=== PATIENT | female | born 1995 | race Caucasian/White ===

== ENCOUNTER 2018-03-08 05:15 | Emergency (ER) | payer BC ==
[~2018-03-08] VITALS: Ht 154.9 cm; Wt 50.0 kg
[2018-03-08 05:16] VITALS: TEMP 36.7; Ht 154.9 cm; Wt 50.0 kg
[2018-03-08] MEDS ORDERED: DEXAMETHASONE SOD INJ 4 MG/ML VIAL IV STA (05:34)
--- NOTE | 2018-03-08 05:34 | EMERGENCY ROOM VISIT NOTE ---
History Report prepared by Dolores: Vladimir Benson Under the Supervision of: Dr. Debi Galloway D.O. First contact with patient: 05:23 Chief Complaint: RESPIRATORY PROBLEMS Stated Complaint: ASTHMA ATTACK-TROUBLE BREATHING History of Present Illness The patient is a 22 year old female who presents to the Emergency Room with complaints of constant SOB beginning this morning. The patient states that she first developed a slight cough two days ago that worsened mildly yesterday. She notes that her cough has not been productive. She reports that she suddenly woke up this morning and felt like she could not breathe. The patient states that it feels like there it "a lot of phlegm that won't break." She also complains of chest tightness and a sore throat at the bottom of her throat. She denies any abdominal pain, leg cramping, and leg swelling. She denies any history of asthma, but notes that she has a history of migraines. She reports that her last period was four weeks ago. The patient states that she is up to date on her immunizations. 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 Source of History: patient Onset: this morning Position: chest Quality: other (SOB) Timing: constant Associated Symptoms: + sorethroat, + cough, No abdominal pain Note: The patient also complains of chest tightness. She denies any leg cramping and leg swelling. Review of Systems See HPI for pertinent positives & negatives. A total of 10 systems reviewed and were otherwise negative. Past Medical & Surgical Medical Problems: (1) Migraine Family History No pertinent family history stated. Social History Smoking Status: Never Smoker Marital Status: single Housing Status: lives with roommate Occupation Status: student Current/Historical Medications No Active Prescriptions or Reported Meds Allergies Coded Allergies: No Known Allergies (Unverified , 03/08/18) Physical Exam Vital Signs Date Time Temp Pulse Resp B/P (MAP) Pulse Ox O2 Delivery O2 Flow Rate FiO2 03/08/18 07:26 104 16 117/76 98 03/08/18 06:29 92 20 103/79 98 Room Air 03/08/18 06:28 82 03/08/18 05:46 99 Room Air 03/08/18 05:46 99 Room Air 03/08/18 05:25 98 Room Air 03/08/18 05:16 36.7 100 18 115/80 96 Room Air Physical Exam HEENT: Head - normocephalic and atraumatic Pupils are equal, round, and reactive to light. Extraocular eye muscles are intact, and sclera are anicteric. Nose - moist nasal mucosa without discharge. Mouth - moist buccal mucosa. Oropharynx is nonerythematous and there is no tonsillar exudate or edema noted. Neck: Supple; no JVD, nuchal rigidity, cervical lymphadenopathy, or thyromegaly. Auscultated stridor. Heart: Regular rate and rhythm. There is a normal S1 and S2 with no murmurs, clicks, or gallops appreciated. Lungs: Clear to auscultation bilaterally with no wheezes, rales, or rhonchi. Abdomen: Soft, completely nontender, nondistended, with good bowel sounds. There are no palpable pulsatile masses or hepatosplenomegaly. There is no guarding, rigidity, or rebound noted. Extremities: No evidence of cyanosis, clubbing, or edema. There are easily palpable peripheral pulses. Skin: warm and dry with good turgor and no rashes. Medical Decision & Procedures ER Provider Diagnostic Interpretation: Radiology results as stated below per my review and the radiologist's interpretation: SOFT TISSUE NECK WITH CLINICAL HISTORY: r/o epiglottitis dyspnea TECHNIQUE: Transaxial acquisition with multi axial reformatted images COMPARISON STUDY: None FINDINGS: The airway is patent. The epiglottis is normal. Somewhat nodular mucosa of the hypopharyngeal region. Slight nonspecific edematous change of the peritonsillar region. No evidence for abscess or collection. Major salivary glands are unremarkable. The loculated piriform sinuses are intact. The glottic and subglottic regions are unremarkable. Pulmonary apices are clear. IMPRESSION: 1. Normal epiglottis. 2. Very subtle/minimal nonspecific edematous change of the peritonsillar region. 3. No evidence for airway compromise. 4. Mild nonspecific nodularity of the hypopharyngeal mucosal pattern. 5. No evidence for abscess or collection. The above report was generated using voice recognition software. It may contain grammatical, syntax or spelling errors. Electronically signed by: Josh Candelario M.D. 03/08/2018 6:43 AM TWO VIEW CHEST X-RAY: No pulmonary infiltrates. No consolidation. No pneumothorax. Laboratory Results 5/4/18 05:40 Red Blood Count 4.45, Mean Corpuscular Volume 91.7, Mean Corpuscular Hemoglobin 30.6, Mean Corpuscular Hemoglobin Concent 33.3, Mean Platelet Volume 10.0, Neutrophils (%) (Auto) 52.0, Lymphocytes (%) (Auto) 32.4, Monocytes (%) (Auto) 11.5, Eosinophils (%) (Auto) 3.5, Basophils (%) (Auto) 0.5, Neutrophils # (Auto ) 3.83, Lymphocytes # (Auto) 2.39, Monocytes # (Auto) 0.85, Eosinophils # (Auto ) 0.26, Basophils # (Auto) 0.04 Test 03/08/18 05:40 03/08/18 05:47 White Blood Count 7.38 K/uL (4.8-10.8) Red Blood Count 4.45 M/uL (4.2-5.4) Hemoglobin 13.6 g/dL (12.0-16.0) Hematocrit 40.8 % (37-47) Mean Corpuscular Volume 91.7 fL (80-100) Mean Corpuscular Hemoglobin 30.6 pg (25-34) Mean Corpuscular Hemoglobin Concent 33.3 g/dl (32-36) Platelet Count 240 K/uL (130-400) Mean Platelet Volume 10.0 fL (7.4-10.4) Neutrophils (%) (Auto) 52.0 % Lymphocytes (%) (Auto) 32.4 % Monocytes (%) (Auto) 11.5 % Eosinophils (%) (Auto) 3.5 % Basophils (%) (Auto) 0.5 % Neutrophils # (Auto) 3.83 K/uL (1.4-6.5) Lymphocytes # (Auto) 2.39 K/uL (1.2-3.4) Monocytes # (Auto) 0.85 K/uL (0.11-0.59) Eosinophils # (Auto) 0.26 K/uL (0-0.5) Basophils # (Auto) 0.04 K/uL (0-0.2) RDW Standard Deviation 42.9 fL (36.4-46.3) RDW Coefficient of Variation 12.7 % (11.5-14.5) Immature Granulocyte % (Auto) 0.1 % Immature Granulocyte # (Auto) 0.01 K/uL (0.00-0.02) Bedside Hemoglobin 13.9 g/dl (12.0-16.0) Bedside Hematocrit 41 % (37-47) Bedside Sodium 140 mEq/L (135-144) Bedside Potassium 3.8 mEq/L (3.3-5.0) Bedside Chloride 105 mEq/L (101-112) Bedside Total CO2 22 mEq/l (24-31) Anion Gap 17.0 mmol/L (16-25) Bedside Blood Urea Nitrogen 7 mg/dl (7-18) Bedside Creatinine 0.7 mg/dl (0.6-1.3) Bedside Glucose (other) 87 mg/dl (70-99) Bedside Ionized Calcium (Suir) 1.24 mmol/l (1.12-1.32) Laboratory results per my review. Medications Administered Medications (Trade) Dose Ordered Sig/Marcie Route Start Time Stop Time Status Last Admin Dose Admin Dexamethasone Sodium Phosphate (Decadron Inj) 10 mg NOW STAT IV 03/08/18 05:34 03/08/18 05:37 DC 03/08/18 05:43 10 MG Dexamethasone Sodium Phosphate (Dexamethasone Inj Pf) 10 mg STK-MED ONCE .ROUTE 03/08/18 05:38 03/08/18 05:39 DC 03/08/18 05:43 10 MG Procedure Decadron Inj 10mg IV ED Course 0528: The patient was evaluated in room A9. A complete history and physical examination were performed. Nursing notes and previous electronic medical records were reviewed. IV lock was established and labs were drawn as above. 0534: Decadron Inj 10mg IV 0638: I discussed the patient's CT scan with Dr. Candelario - Radiology, [facility]. He explained that there was no narrowing of the airway or evidence of epiglottitis. However there was nodularity and inflammation of the hypopharynx. 0640: I reevaluated and updated the patient. She feels much better after receiving steroids. She now has a significant productive cough. Since she has been in the emergency department, she has been coughing up thick sputum. She is about to go to X-RAY. 0710: Chest x-ray was unremarkable. Upon reevaluation, the patient feels better. She will follow up with ENT in [place]. I discussed findings and results with her. She verbalized agreement of the treatment plan. The patient was discharged home. Medical Decision The patient is a 22 year old female who presents to the Emergency Room with complaints of constant SOB beginning this morning. Differential diagnoses include: bronchitis, epiglottitis, pneumonia, and laryngeal edema secondary to trauma. Lab Results Show: White Count 7.3. Stable H&H. Normal renal function and glucose. This is a 22-year-old female patient who presents to the emergency department with a fairly sudden onset of sore throat, hoarse voice, cough, and respiratory problems. I was concerned about the possibility of epiglottitis as the patient does describe some viral symptoms. Lung exam was unremarkable. CT scan of the neck revealed no evidence of epiglottitis or airway narrowing. However, there was some nodularity and inflammation of the hypopharynx. The patient does sing and the thought was she may have irritated or inflamed the hypopharynx. She did receive IV Decadron with significant relief of her symptoms. I have asked the patient to follow-up with the PCP and ENT. She is to rest her voice over the next 7-10 days. If symptoms worsen, she should return to the emergency department immediately. Medication Reconcilliation Current Medication List: was personally reviewed by me Blood Pressure Screening Patient's blood pressure: Normal blood pressure Blood pressure disposition: Did not require urgent referral Consults Time Called: 0636 Consulting Physician: Dr. Candelario - Radiology, [facility] Returned Call: [phone] Discussed the patient's CT scan. Impression Primary Impression: Laryngeal stridor Scribe Attestation The scribe's documentation has been prepared under my direction and personally reviewed by me in its entirety. I confirm that the note above accurately reflects all work, treatment, procedures, and medical decision making performed by me. Departure Information Dispostion Home / Self-Care Prescriptions No Active Prescriptions or Reported Meds Referrals No Doctor, Assigned (PCP) Forms HOME CARE DOCUMENTATION FORM, IMPORTANT VISIT INFORMATION, WORK / SCHOOL INSTRUCTIONS Patient Instructions My [facility] Additional Instructions Rest your voice for the next 7-10 days Follow up with ENT if symptoms persist - Nodularity and inflammation of the hypopharynx. Return to the ER for any worsening symptoms
[2018-03-08] MEDS ORDERED: DEXAMETHASONE **PF** INJ 10 MG/ML VIAL ONE (05:38)
[2018-03-08 05:46] VITALS: O2SAT 99
[2018-03-08 05:55] LABS: BASO % 0.5 %; BASO ABS # 0.04 K/uL (0-0.2); EOS % 3.5 %; EOS ABS # 0.26 K/uL (0-0.5); HEMATOCRIT 40.8 % (37-47); HEMOGLOBIN 13.6 g/dL (12.0-16.0); IG# 0.01 K/uL (0.00-0.02); LYMPH % 32.4 %; LYMPH ABS # 2.39 K/uL (1.2-3.4); MEAN CELL VOLUME 91.7 fL (80-100); MEAN CORPUSCULAR HEMOGLOBIN 30.6 pg (25-34); MEAN CORPUSCULAR HGB CONC 33.3 g/dl (32-36); MONO % 11.5 %; MONO ABS # 0.85 K/uL (0.11-0.59); NEUT ABS # 3.83 K/uL (1.4-6.5); PLATELET COUNT 240 K/uL (130-400); RED CELL DISTRIBUTION WIDTH CV 12.7 % (11.5-14.5); RED CELL DISTRIBUTION WIDTH SD 42.9 fL (36.4-46.3); WHITE BLOOD COUNT 7.38 K/uL (4.8-10.8)
[2018-03-08 06:03] LABS: ISTAT CREATININE 0.7 mg/dl (0.6-1.3); ISTAT IONIZED CALCIUM 1.24 mmol/l (1.12-1.32); ISTAT POTASSIUM 3.8 mEq/L (3.3-5.0)
[2018-03-08] MEDS ORDERED: OPTIRAY 320 IV PRN (06:30)
--- NOTE | 2018-03-08 06:45 | DIAGNOSTIC IMAGING REPORT ---
SOFT TISSUE NECK WITH CLINICAL HISTORY: r/o epiglottitis dyspnea TECHNIQUE: Transaxial acquisition with multi axial reformatted images COMPARISON STUDY: None FINDINGS: The airway is patent. The epiglottis is normal. Somewhat nodular mucosa of the hypopharyngeal region. Slight nonspecific edematous change of the peritonsillar region. No evidence for abscess or collection. Major salivary glands are unremarkable. The loculated piriform sinuses are intact. The glottic and subglottic regions are unremarkable. Pulmonary apices are clear. IMPRESSION: 1. Normal epiglottis. 2. Very subtle/minimal nonspecific edematous change of the peritonsillar region. 3. No evidence for airway compromise. 4. Mild nonspecific nodularity of the hypopharyngeal mucosal pattern. 5. No evidence for abscess or collection. The above report was generated using voice recognition software. It may contain grammatical, syntax or spelling errors. Electronically signed by: Josh Candelario M.D. 03/08/2018 6:43 AM Dictated Date/Time: 03/08/2018 6:37 AM
--- NOTE | 2018-03-08 07:08 | DIAGNOSTIC IMAGING REPORT ---
CHEST 2 VIEWS ROUTINE CLINICAL HISTORY: productive cough dyspnea COMPARISON STUDY: No previous studies for comparison. FINDINGS: The bones soft tissues and hemidiaphragms are normal. The cardiomediastinal silhouette is normal. The lungs are clear. The pulmonary vasculature is normal. IMPRESSION: Negative chest. The above report was generated using voice recognition software. It may contain grammatical, syntax or spelling errors. Electronically signed by: Josh Candelario M.D. 03/08/2018 7:07 AM Dictated Date/Time: 03/08/2018 7:07 AM
[2018-03-08 07:26] VITALS: BP 117/76; PULSE 104; O2SAT 98
== END 2018-03-08 07:28 | disposition home or self-care (01) ==
LOC: C.EDB 05:16 → C.EDA 07:28
DX: R06.1 Stridor (principal); J39.2 Other diseases of pharynx; R05 Cough